=== PATIENT | female | born 1950 | race Caucasian/White ===

== ENCOUNTER 2016-12-11 18:05 | Emergency (ER) | payer OTHER, MEDICARE, BC ==
[~2016-12-11 18:05] MED LIST: AMITRIPTYLINE H25 MG PO; ASPIRIN LOW STR81 MG PO; AZELASTINE HCL6 ML OP; BEE WITH C1 CAP PO; CARVEDILOL12.5 MG PO; CELEBREX200 MG PO; CENTRUM SILVER1 EAC1 PO; CENTRUM SILVER1 TA; CHLORASEPTIC LO2 LOZ MM; CITRACAL 250 MG PO; COUMADIN2 MG PO; FOLIC ACID1 M1 PO; HYDROCODON-ACE1 EACH; LEUCOVORIN PO; METHOTREXATE2.5 M1 PO; METHOTREXATE2.5 MG PO; NORCO 5/325 TAB1 TAB PO; PERCOCET 5/3251 TAB PO; PLAQUENIL200 MG PO; PREDNISONE1 M1 PO; PRILOSEC OTC20 MG PO; PRILOSEC20 MG PO; PRISTIQ100 MG PO; SYNTHROID50 MC1 PO; VITAMIN D31000 UNIT PO; [UNRECOGNIZED DRUG - OTHER] TOP
[2016-12-11] MEDS ORDERED: VITAMIN D31000 UNI3 PO (20:06)
[2016-12-11] MEDS ORDERED: LEUCOVORIN (20:07)
== END 2016-12-11 21:01 ==
LOC: EDMED 18:05
DX: S06.0X0A Concussion without loss of consciousness, initial encounter (principal); S16.1XXA Strain of muscle, fascia and tendon at neck level, initial encounter; S00.33XA Contusion of nose, initial encounter; I10 Essential (primary) hypertension; W01.198A Fall on same level from slipping, tripping and stumbling with subsequent striking against other object, initial encounter; Y92.69 Other specified industrial and construction area as the place of occurrence of the external cause; Y99.0 Civilian activity done for income or pay